=== PATIENT | female | born 1970 | race Caucasian/White ===

== ENCOUNTER 2023-02-02 14:35 | Emergency (ER) | payer OTHER, MEDICAID, SELFPAY ==
[2023-02-02 14:36] VITALS: BP 176/101; PULSE 82; RESP 18; TEMP 36.3; O2SAT 100; BMI 33.5
--- NOTE | 2023-02-02 14:40 | ED.RN ---
SUPERVISOR COMPRESSED YEAST LAM NEXT TO PT IN TRIAGE. PER LAM, NO DRUG SCREEN REQUIRED AT THIS TIME.
--- NOTE | 2023-02-02 15:47 | EX.ED.GENINJ ---
HPI History of Present Illness Chief Complaint: Laceration Informant: patient Onset/Context/Timing Onset: Today Narrative Narrative: Patient presents secondary to left arm laceration. She states she was at work and slipped on the wet floor. She landed on her knee which is not bothering her, but she caught her left arm on a bolt that was sticking out. She had to pull her arm off of the bolt and when she did so she states it was bleeding quite briskly. Pressure dressing has been applied. She is left-hand dominant. She denies bony tenderness and has full range of motion at all joints. She states her last tetanus shot was a year and a half ago. PFSH PFSH Allergy/AdvReac Type Severity Reaction Status Date / Time codeine Allergy Anaphylaxis Verified 02/02/23 14:40 Penicillins Allergy Anaphylaxis Verified 02/02/23 14:38 ROS ROS ED Constitutional Constitutional ED: Denies chills or fever(s) Eyes Eyes: Denies change in vision or discharge from eye(s) ENT ENT ED: Denies discharge from eye(s), rhinorrhea or sore throat Cardiovascular Cardiovascular: Denies chest pain Respiratory/Chest Respiratory/Chest: Denies cough or dyspnea Gastrointestinal Gastrointestinal: Denies abdominal pain, nausea or vomiting Musculoskeletal Musculoskeletal: Reports extremity pain; Denies back pain Integumentary Reports other Details: Left forearm laceration ; Denies Abrasions or rash Neurologic Neurologic: Denies headache(s) or weakness Psychiatric Psychiatric: Denies anxiety or depression Allergic/Immunologic Allergic/Immunologic ED: Denies lip swelling or urticaria EXAM Physical Exam Const Vital Signs: 02/02/23 14:36 Temperature 97.3 F L Temperature Source Temporal Pulse Rate 82 Respiratory Rate 18 Blood Pressure 176/101 H Blood Pressure Mean 126 Pulse Ox 100 Oxygen Delivery Method Room Air Positive well nourished and well developed General Appearance ED: well developed Eyes EOMs intact bilaterally Chest Wall palpation of chest normal Resp normal respiratory effort and clear to auscultation bilaterally Cardio regular rhythm Rate: regular rate GI non-tender Palpation: soft Extremity Extremity Narrative: 5 cm flap laceration noted to the ulnar side of the left forearm. Mild bleeding noted. Full range of motion of the left upper extremity without difficulty. Neuro oriented x3 and moves all extremities Motor Exam: strength 5/5 throughout MDM MDM MDM Narrative Medical decision making narrative: 3 cc of 1% lidocaine are infused locally. Wound is cleansed and irrigated. A total of 8 simple interrupted sutures were placed with 5-0 nylon. Antibiotic ointment applied and dressing placed. Patient be given Tylenol for pain. She states her tetanus is already up-to-date. Discharge Plan Triage Chief Complaint: Laceration ED Provider: Melissa Diaz Dx/Rx/DC Orders Clinical Impression: Laceration of left forearm Instructions: ED Laceration Extremity Stand Alone Forms: Work Status Form Primary Care Provider: THAD AGUILAR Referrals: THAD AGUILAR [Other] [facility] [Group of Physicians] - 7 Days for suture removal
[2023-02-02] MEDS: Lidocaine 1% (20 ml mdv) 20 ML Vial INFILT (16:18)
[2023-02-02] MEDS: Acetaminophen 500 MG Tablet 1000 MG PO (16:18)
== END 2023-02-02 16:20 | disposition home or self-care (01) ==
PROVIDERS: Emergency Provider Emergency Medicine; Visit Provider Emergency Medicine
DX: S51.812A Laceration without foreign body of left forearm, initial encounter (principal); Y99.0 Civilian activity done for income or pay; X58.XXXA Exposure to other specified factors, initial encounter
CPT/HCPCS: 12002; 99283

== ENCOUNTER → 2023-02-15 | Outpatient (CLI) | payer MEDICAID, SELFPAY ==
--- NOTE | 2023-02-15 11:40 | RAD_ITS ---
STUDY: X-RAY - LEFT ELBOW REASON FOR EXAM: Female, 52 years old. Left elbow pain following injury. TECHNIQUE: 3 view(s) of the elbow. COMPARISON: None. FINDINGS: Normal visualized humerus, radius and ulna. Normal radiocapitellar and ulnotrochlear articulations. The soft tissue structures are unremarkable. RAD/Elbow min 3 Views IMPRESSION: Normal x-ray examination of the elbow. Electronically Signed: Wu Turner MD at 12:30 EDT ,
== END | disposition home or self-care (01) ==
PROVIDERS: Referring Provider Physician Assistant; Visit Provider Physician Assistant
DX: M25.522 Pain in left elbow (principal)
CPT/HCPCS: 73080